=== PATIENT | male | born 1950 ===

== ENCOUNTER → 2016-12-29 | Outpatient (CLI) | payer OTHER, BC ==
[2016-12-29 18:11] LABS: ALT/SGPT 78 U/L (12-78); AST/SGOT 46 U/L (15-37); BLOOD UREA NITROGEN 10 mg/dl (7-18); BUN/CREATININE RATIO 10.6 (10-20); CALCIUM 8.7 mg/dl (8.5-10.1); CARBON DIOXIDE 27 mmol/L (21-32); CHLORIDE 103 mmol/L (98-107); CREATININE 0.93 mg/dl (0.60-1.40); GLUCOSE 310 mg/dl (70-99); POTASSIUM 3.9 mmol/L (3.5-5.1); SODIUM 140 mmol/L (136-145)
[2016-12-29 18:13] LABS: CHOLESTEROL 147 mg/dl (0-200); TRIGLYCERIDES 195 mg/dl (0-150); VERY LOW DENSITY LIPOPROT CALC 39 mg/dl
[2016-12-29 18:21] LABS: BETA-HYDROXYBUTYRATE 5.02 mg/dL (0.2-2.81); HDL CHOLESTEROL 37 mg/dl; LDL CHOLESTEROL CALCULATED 71 mg/dl
[2016-12-30 06:57] LABS: ESTIMATED AVERAGE GLUCOSE 283 mg/dl; HA1C FLAG Normal (Normal)
--- NOTE | 2017-01-04 11:31 | CODING QUERY MEDICAL NECESSITY ---
SUPPORTING DIAGNOSIS NEEDED A supporting diagnosis is required for the test/procedure performed on this patient in order for us to be reimbursed by the patient's insurance. Please provide a supporting diagnosis for the following test/procedure listed below next to the test name along with your signature. *If there is no additional diagnosis for this patient that would support the following test/procedure please document that below next to the test/procedure. Test(s)/Procedure(s) that require a supporting diagnosis: DOS 12/29 * Hba1c DIAGNOSIS: Provider Signature: Date: Thank you Edelmira [facility] Once completed, please kindly fax back to [phone] For questions please call [phone]
== END | disposition home or self-care (01) ==
LOC: C.LABMFLN 12:26
PROVIDERS: ATTEND Family Medicine
DX: I10 Essential (primary) hypertension (principal); E78.00 Pure hypercholesterolemia, unspecified; Z12.5 Encounter for screening for malignant neoplasm of prostate; R80.9 Proteinuria, unspecified; E11.9 Type 2 diabetes mellitus without complications

== ENCOUNTER → 2017-04-06 | Outpatient (CLI) | payer OTHER, BC ==
[2017-04-06 19:31] LABS: BLOOD UREA NITROGEN 15 mg/dl (7-18); BUN/CREATININE RATIO 16.4 (10-20); CALCIUM 9.3 mg/dl (8.5-10.1); CARBON DIOXIDE 29 mmol/L (21-32); CHLORIDE 109 mmol/L (98-107); CREATININE 0.89 mg/dl (0.60-1.40); GLUCOSE 130 mg/dl (70-99); POTASSIUM 4.3 mmol/L (3.5-5.1); SODIUM 145 mmol/L (136-145)
[2017-04-06 20:00] LABS: ESTIMATED AVERAGE GLUCOSE 169 mg/dl; HA1C FLAG Normal (Normal)
== END | disposition home or self-care (01) ==
LOC: C.LABMFLN 13:52
PROVIDERS: ATTEND Family Medicine
DX: E11.29 Type 2 diabetes mellitus with other diabetic kidney complication (principal)

== ENCOUNTER → 2017-08-16 | Outpatient (CLI) | payer OTHER, BC ==
[2017-08-16 13:40] LABS: ESTIMATED AVERAGE GLUCOSE 140 mg/dl; HA1C FLAG Normal (Normal)
[2017-08-16 14:06] LABS: ALT/SGPT 30 U/L (12-78); AST/SGOT 22 U/L (15-37); BLOOD UREA NITROGEN 12 mg/dl (7-18); BUN/CREATININE RATIO 14.8 (10-20); CALCIUM 8.8 mg/dl (8.5-10.1); CARBON DIOXIDE 27 mmol/L (21-32); CHLORIDE 106 mmol/L (98-107); CREATININE 0.84 mg/dl (0.60-1.40); GLUCOSE 139 mg/dl (70-99); POTASSIUM 3.6 mmol/L (3.5-5.1); SODIUM 141 mmol/L (136-145)
[2017-08-16 14:09] LABS: ALB/GLOB RATIO 1.1 (0.9-2); ALKALINE PHOSPHATASE 75 U/L (45-117); CHOLESTEROL 115 mg/dl (0-200); CHOLESTEROL/HDL RATIO 2.9; HDL CHOLESTEROL 39 mg/dl; LDL CHOLESTEROL CALCULATED 41 mg/dl; TRIGLYCERIDES 176 mg/dl (0-150); VERY LOW DENSITY LIPOPROT CALC 35 mg/dl
[2017-08-16 14:49] LABS: RATIO 102.9 mcg/mg (0-30.0)
== END | disposition home or self-care (01) ==
LOC: C.LABMFLN 09:20
PROVIDERS: ATTEND Family Medicine
DX: I10 Essential (primary) hypertension (principal); E78.00 Pure hypercholesterolemia, unspecified; E11.29 Type 2 diabetes mellitus with other diabetic kidney complication

== ENCOUNTER → 2017-12-14 | Outpatient (CLI) | payer OTHER, BC ==
[2017-12-14 13:16] LABS: HEMOGLOBIN A1C 7.4 % (4.5-5.6)
[2017-12-14 13:30] LABS: ALBUMIN 3.8 gm/dl (3.4-5.0); ALT/SGPT 31 U/L (12-78); BLOOD UREA NITROGEN 13 mg/dl (7-18); CALCIUM 9.1 mg/dl (8.5-10.1); CARBON DIOXIDE 28 mmol/L (21-32); CHOLESTEROL 123 mg/dl (0-200); CREATININE 0.92 mg/dl (0.60-1.40); GLUCOSE 166 mg/dl (70-99); POTASSIUM 4.4 mmol/L (3.5-5.1); SODIUM 138 mmol/L (136-145)
[2017-12-14 13:33] LABS: ALKALINE PHOSPHATASE 75 U/L (45-117); AST/SGOT 17 U/L (15-37); LDL CHOLESTEROL CALCULATED 59 mg/dl; TOTAL PROTEIN 7.6 gm/dl (6.4-8.2)
== END | disposition home or self-care (01) ==
LOC: C.LABMFLN 10:44
PROVIDERS: ATTEND Family Medicine
DX: I10 Essential (primary) hypertension (principal); E78.00 Pure hypercholesterolemia, unspecified; E11.29 Type 2 diabetes mellitus with other diabetic kidney complication

== ENCOUNTER → 2018-01-28 | Outpatient (CLI) | payer OTHER, BC ==
[2018-01-28 18:11] LABS: BLOOD UREA NITROGEN 14 mg/dl (7-18); CALCIUM 9.2 mg/dl (8.5-10.1); CARBON DIOXIDE 33 mmol/L (21-32); CREATININE 1.01 mg/dl (0.60-1.40); GLUCOSE 185 mg/dl (70-99); POTASSIUM 3.9 mmol/L (3.5-5.1); SODIUM 136 mmol/L (136-145)
== END | disposition home or self-care (01) ==
LOC: C.LABMFLN 12:49
PROVIDERS: ATTEND Family Medicine
DX: I10 Essential (primary) hypertension (principal); R63.5 Abnormal weight gain

== ENCOUNTER → 2018-06-24 | Outpatient (CLI) | payer OTHER, BC ==
[2018-06-24 13:04] LABS: ALBUMIN 3.7 gm/dl (3.4-5.0); ALKALINE PHOSPHATASE 66 U/L (45-117); ALT/SGPT 62 U/L (12-78); AST/SGOT 31 U/L (15-37); BLOOD UREA NITROGEN 18 mg/dl (7-18); CALCIUM 8.8 mg/dl (8.5-10.1); CARBON DIOXIDE 28 mmol/L (21-32); CHOLESTEROL 117 mg/dl (0-200); CREATININE 1.04 mg/dl (0.60-1.40); GLUCOSE 287 mg/dl (70-99); LDL CHOLESTEROL CALCULATED 43 mg/dl; POTASSIUM 3.9 mmol/L (3.5-5.1); SODIUM 139 mmol/L (136-145); TOTAL PROTEIN 7.3 gm/dl (6.4-8.2)
[2018-06-24 13:15] LABS: HEMOGLOBIN A1C 10.1 % (4.5-5.6)
== END | disposition home or self-care (01) ==
LOC: C.LABMFLN 08:46
PROVIDERS: ATTEND Family Medicine
DX: I10 Essential (primary) hypertension (principal); E78.00 Pure hypercholesterolemia, unspecified; E11.29 Type 2 diabetes mellitus with other diabetic kidney complication